=== PATIENT | female | born 1995 | race Caucasian/White ===

== ENCOUNTER 2018-01-12 18:57 | Emergency (ER) | payer OTHER ==
[2018-01-12 22:04] LABS: ABS Basophils 0 10^3/ul (0-0.2); ABS Eosinophils 0.2 10^3/ul (0-0.6); ABS Lymphocytes 3.3 10^3/ul (1.0-4.8); ABS Monocytes 0.5 10^3/ul (0-0.8); ABS Neutrophils 4.3 10^3/ul (1.5-7.7); ABS Nucleated RBC 0 10^3/ul; Eosinophil % 2.1 % (0-6); Hematocrit 43 % (35-47); Hemoglobin 14.9 g/dl (12.0-16.0); Lymphocyte % 39.4 % (25-47); Mean Corpuscular HGB Conc 35 g/dl (31-36); Mean Corpuscular Hemoglobin 31 pg (27-31); Mean Corpuscular Volume 89 fL (80-97); Mean Platelet Volume 9 um3 (7.4-10.4); Nucleated Red Blood Cells % 0; Platelet Count 183 10^3/ul (150-450); Red Cell Distribution Width 14 % (10.5-15); White Blood Count 8.3 10^3/ul (3.5-10.8)
[2018-01-12 22:22] LABS: EGFR Non-African American 110.1 (>60)
[2018-01-13] MEDS ORDERED: NS 0.9% 1000 ML* 1,000 ML IV ONE (00:55)
[2018-01-13 01:17] LABS: Urine Appearance Cloudy; Urine Blood 1+ (Negative); Urine Color Yellow; Urine Ketones Negative (Negative); Urine Protein Negative (Negative); Urine Urobilinogen Negative (Negative)
--- NOTE | 2018-01-13 01:50 | ED ---
Abdominal Pain/Female - HPI Summary HPI Summary: Patient here with right lower quadrant abdominal pain 5 days. Started as intermittent sharp pain fairly spaced out however over the past few days is been getting more frequent. Associated symptoms are nausea when pain is at its worst. She admits to a history of right ovarian cyst however reports this typically meets a crescendo of pain but she assumes is the cyst rupturing and the pain goes away after day or 2. This is the longest this type of pain is lasted and seems to be worse than usual. She was taking oral control up until the past month and she recently switched over to an IUD. She admits her practitioner attempted to place a ParaGard twice as the first one came out and the second one came out as well. A third IUD was placed in the same day, this time her Mirena which is currently present. She's had discomfort since and had a week of bleeding after. She reports she was seen at [facility] since symptoms started and had an ultrasound to make sure the IUD did not perforate her uterine wall which it had not. Unfortunately they could not comment on her ovary status at that point in time. She also reports flank pain on the left side at one point but does not have this currently. Additionally, she has had some dysuria but denies frequency, urge, hematuria and no vaginal discharge other than that mentioned above with spotting. She is not had any abdominal surgeries in the past. Bowel movements have been normal. Denies vomiting, diarrhea, [place], chills, headache, chest pain, shortness of breath, skin changes and no trauma to the vaginal canal other than recent IUD placement. She does admit to dyspareunia at times which is mostly positional and denies postcoital bleeding. She has not had a Pap smear is a strong family history of breast cancer. Denies known history of ovarian uterine or cervical cancer. - History of Current Complaint Hx Obtained From: Patient, Family/[employer] - male partner Pain Intensity: 0 <Nohemi Diaz - Last Filed: 01/13/18 03:13> <Fermín Guzman - Last Filed: 01/13/18 15:51> - History of Current Complaint Chief Complaint: EDTimmyPain Stated Complaint: ABD PAIN Time Seen by Provider: 01/13/18 00:12 Allergies/Adverse Reactions: Allergies Allergy/AdvReac Type Severity Reaction Status Date / Time No Known Allergies Allergy Verified 01/12/18 18:59 PMH/Surg Hx/FS Hx/Imm Hx Previously Healthy: Yes Endocrine/Hematology History: Denies: Hx Anticoagulant Therapy, Hx Blood Disorders, Autoimmune Disease GI History: Denies: Hx Crohn's Disease, Hx Diverticulosis, Hx Gall Bladder Disease, Hx Gastroesophageal Reflux Disease, Hx Gastrointestinal Bleed, Hx Hiatal Hernia, Hx Irritable Bowel, Hx Obstructive Bowel, Hx Ulcer History: Reports: Hx Renal Disease - "kidney issues" in the past; h/o UTI, ovarian cysts Infectious Disease History: No Infectious Disease History: Denies: Traveled Outside the [place] in Last 30 Days - Family History Known Family History: Positive: Renal Disease - Maternal aunt, Blood Disorder - DVT father, Other - breast cancer - aunt, gram (mom w/ lumps) - Social History Occupation: Student - PT student Lives: Dormitory/Roommates Alcohol Use: Occasionally Hx Substance Use: No Substance Use Type: Reports: None Hx Tobacco Use: No Smoking Status (MU): Never Smoked Tobacco <Nohemi Diaz - Last Filed: 01/13/18 03:13> Review of Systems Constitutional: Negative Negative: Fever, Chills, Fatigue Cardiovascular: Negative Respiratory: Negative Positive: Abdominal Pain, Nausea. Negative: Vomiting, Diarrhea Positive: see HPI Musculoskeletal: Negative Skin: Negative Neurological: Negative Psychological: Normal - concerned but calm and cooperative All Other Systems Reviewed And Are Negative: Yes <Nohemi Diaz - Last Filed: 01/13/18 03:13> Physical Exam Triage Information Reviewed: Yes Vital Signs On Initial Exam: Initial Vitals Temp Pulse Resp BP Pulse Ox 96.8 F 75 14 122/81 98 01/12/18 18:59 01/12/18 18:59 01/12/18 18:59 01/12/18 18:59 01/12/18 18:59 Vital Signs Reviewed: Yes Appearance: Positive: Well-Appearing, Well-Nourished, Pain Distress - mild Skin: Positive: Warm, Skin Color Reflects Adequate Perfusion, Dry Head/Face: Positive: Normal Head/Face Inspection Eyes: Positive: Normal, EOMI, Conjunctiva Clear - anicteric sclera ENT: Positive: Normal ENT inspection, Hearing grossly normal, Pharynx normal - mucosa moist Neck: Positive: Supple Respiratory/Lung Sounds: Positive: Clear to Auscultation, Breath Sounds Present Cardiovascular: Positive: Normal, RRR, S1, S2 Abdomen Description: Positive: No Organomegaly, Soft, Other: - RLQ TTP (mild) - no rebounding; (-) Rovsing. Negative: CVA Tenderness (R), CVA Tenderness (L), Distended, Guarding Bowel Sounds: Positive: Present Pelvic Exam: Positive: external exam normal, cervicitis, discharge - yellow, mucous d/c - blood tinged on specimen collection, tender w/ cervical motion, tender adnexa - Rt - no masses palpated. Negative: active bleeding Musculoskeletal: Positive: Normal, Strength/ROM Intact Neurological: Positive: Normal, Sensory/Motor Intact, Alert, Oriented to Person Place, Time, CN Intact II-III Psychiatric: Positive: Normal <Nohemi Diaz - Last Filed: 01/13/18 03:13> Vital Signs On Initial Exam: Initial Vitals Temp Pulse Resp BP Pulse Ox 36.0 C 75 14 122/81 98 01/12/18 18:59 01/12/18 18:59 01/12/18 18:59 01/12/18 18:59 01/12/18 18:59 <Fermín Guzman - Last Filed: 01/13/18 15:51> Diagnostics - Vital Signs Vital Signs Temp Pulse Resp BP Pulse Ox 01/12/18 22:56 98.3 F 72 122/73 100 01/12/18 21:06 97.5 F 74 16 121/82 100 01/12/18 18:59 96.8 F 75 14 122/81 98 - Laboratory Lab Results: Lab Results 01/12/18 01/12/18 01/13/18 Range/Units 21:47 21:47 00:30 WBC 8.3 (3.5-10.8) 10^3/ul RBC 4.80 (4.0-5.4) 10^6/ul Hgb 14.9 (12.0-16.0) g/dl Hct 43 (35-47) % MCV 89 (80-97) fL MCH 31 (27-31) pg MCHC 35 (31-36) g/dl RDW 14 (10.5-15) % Plt Count 183 (150-450) 10^3/ul MPV 9 (7.4-10.4) um3 Neut % (Auto) 51.9 (38-83) % Lymph % (Auto) 39.4 (25-47) % Freestone % (Auto) 6.1 (0-7) % Eos % (Auto) 2.1 (0-6) % Baso % (Auto) 0.5 (0-2) % Absolute Neuts (auto) 4.3 (1.5-7.7) 10^3/ul Absolute Lymphs (auto) 3.3 (1.0-4.8) 10^3/ul Absolute Monos (auto) 0.5 (0-0.8) 10^3/ul Absolute Eos (auto) 0.2 (0-0.6) 10^3/ul Absolute Basos (auto) 0 (0-0.2) 10^3/ul Absolute Nucleated RBC 0 10^3/ul Nucleated RBC % 0 Sodium 140 (133-145) mmol/L Potassium 3.8 (3.5-5.0) mmol/L Chloride 106 (101-111) mmol/L Carbon Dioxide 27 (22-32) mmol/L Anion Gap 7 (2-11) mmol/L BUN 13 (6-24) mg/dL Creatinine 0.67 (0.51-0.95) mg/dL Est GFR ( Amer) 141.5 (>60) Est GFR (Non-Af Amer) 110.1 (>60) BUN/Creatinine Ratio 19.4 (8-20) Glucose 76 (70-100) mg/dL Calcium 9.4 (8.6-10.3) mg/dL Total Bilirubin 0.40 (0.2-1.0) mg/dL AST 26 (13-39) U/L ALT 39 (7-52) U/L Alkaline Phosphatase 45 (34-104) U/L C-Reactive Protein < 1.00 (< 5.00) mg/L Total Protein 7.1 (6.4-8.9) g/dL Albumin 4.5 (3.2-5.2) g/dL Globulin 2.6 (2-4) g/dL Albumin/Globulin Ratio 1.7 (1-3) Lipase 25 (11.0-82.0) U/L Beta HCG, Quant < 0.60 mIU/mL Urine Color Yellow Urine Appearance Cloudy Urine pH 7.0 (5-9) Ur Specific Taft 1.020 (1.010-1.030) Urine Protein Negative (Negative) Urine Ketones Negative (Negative) Urine Blood 1+ A (Negative) Urine Nitrate Negative (Negative) Urine Bilirubin Negative (Negative) Urine Urobilinogen Negative (Negative) Ur Leukocyte Esterase 2+ A (Negative) Urine WBC (Auto) 3+(>20/hpf) A (Absent) Urine RBC (Auto) Trace(0-2/hpf) (Absent) Ur Squamous Epith Cells Present A (Absent) Urine Bacteria Absent (Absent) Urine Glucose Negative (Negative) Result Diagrams: 01/12/18 21:47 01/12/18 21:47 Lab Statement: Any lab studies that have been ordered have been reviewed, and results considered in the medical decision making process. <Nohemi Diaz - Last Filed: 01/13/18 03:13> - Vital Signs Vital Signs Temp Pulse Resp BP Pulse Ox 01/13/18 02:09 36.4 C 01/12/18 22:56 36.8 C 72 122/73 100 01/12/18 21:06 36.4 C 74 16 121/82 100 01/12/18 18:59 36.0 C 75 14 122/81 98 - Laboratory Lab Results: Lab Results 01/12/18 01/12/18 01/13/18 Range/Units 21:47 21:47 00:30 WBC 8.3 (3.5-10.8) 10^3/ul RBC 4.80 (4.0-5.4) 10^6/ul Hgb 14.9 (12.0-16.0) g/dl Hct 43 (35-47) % MCV 89 (80-97) fL MCH 31 (27-31) pg MCHC 35 (31-36) g/dl RDW 14 (10.5-15) % Plt Count 183 (150-450) 10^3/ul MPV 9 (7.4-10.4) um3 Neut % (Auto) 51.9 (38-83) % Lymph % (Auto) 39.4 (25-47) % Freestone % (Auto) 6.1 (0-7) % Eos % (Auto) 2.1 (0-6) % Baso % (Auto) 0.5 (0-2) % Absolute Neuts (auto) 4.3 (1.5-7.7) 10^3/ul Absolute Lymphs (auto) 3.3 (1.0-4.8) 10^3/ul Absolute Monos (auto) 0.5 (0-0.8) 10^3/ul Absolute Eos (auto) 0.2 (0-0.6) 10^3/ul Absolute Basos (auto) 0 (0-0.2) 10^3/ul Absolute Nucleated RBC 0 10^3/ul Nucleated RBC % 0 Sodium 140 (133-145) mmol/L Potassium 3.8 (3.5-5.0) mmol/L Chloride 106 (101-111) mmol/L Carbon Dioxide 27 (22-32) mmol/L Anion Gap 7 (2-11) mmol/L BUN 13 (6-24) mg/dL Creatinine 0.67 (0.51-0.95) mg/dL Est GFR ( Amer) 141.5 (>60) Est GFR (Non-Af Amer) 110.1 (>60) BUN/Creatinine Ratio 19.4 (8-20) Glucose 76 (70-100) mg/dL Calcium 9.4 (8.6-10.3) mg/dL Total Bilirubin 0.40 (0.2-1.0) mg/dL AST 26 (13-39) U/L ALT 39 (7-52) U/L Alkaline Phosphatase 45 (34-104) U/L C-Reactive Protein < 1.00 (< 5.00) mg/L Total Protein 7.1 (6.4-8.9) g/dL Albumin 4.5 (3.2-5.2) g/dL Globulin 2.6 (2-4) g/dL Albumin/Globulin Ratio 1.7 (1-3) Lipase 25 (11.0-82.0) U/L Beta HCG, Quant < 0.60 mIU/mL Urine Color Yellow Urine Appearance Cloudy Urine pH 7.0 (5-9) Ur Specific [place] 1.020 (1.010-1.030) Urine Protein Negative (Negative) Urine Ketones Negative (Negative) Urine Blood 1+ A (Negative) Urine Nitrate Negative (Negative) Urine Bilirubin Negative (Negative) Urine Urobilinogen Negative (Negative) Ur Leukocyte Esterase 2+ A (Negative) Urine WBC (Auto) 3+(>20/hpf) A (Absent) Urine RBC (Auto) Trace(0-2/hpf) (Absent) Ur Squamous Epith Cells Present A (Absent) Urine Bacteria Absent (Absent) Urine Glucose Negative (Negative) Result Diagrams: 01/12/18 21:47 01/12/18 21:47 Lab Statement: Any lab studies that have been ordered have been reviewed, and results considered in the medical decision making process. <Fermín Guzman - Last Filed: 01/13/18 15:51> Re-Evaluation - Re-Evaluation First Eval Re-Evaluation Time: 03:57 Change: Improved - pt symptomatically improved with IV and oral analgesia. pt pain consistent with ovarian cyst. Pt repeat exam with mild right sided pelvic tenderness. No McBurney's point tenderness; no g/r; soft <Fermín Guzman - Last Filed: 01/13/18 15:51> Abdominal Pain Fem Course/Dx - Course Course Of Treatment: Patient here with right lower quadrant pain 5 days progressively worsening. She reports history of right ovarian cyst on this side which feels similar however pain seems to be getting worse instead of getting better as he usually does after a day or 2. She admits to associated symptoms of nausea when pain is at its peak. Denies fevers chills vomiting diarrhea urinary symptoms. She also admits to recent placement of IUD which was complicated as 3 were placed in one day. She had an [facility] at [facility] since right lower quadrant pain started and they reported IUD was in place without perforation. Unfortunately cannot comment on the status of her ovaries. Her labs are all within normal limits here today as are her vital signs. Her pelvic exam is positive for cervical motion tenderness which could be from IUD irritation and/or infection as she does have a mucousy blood-tinged discharge. She also has right adnexal tenderness. Transvaginal ultrasound was ordered to rule out ovarian torsionresults pending. Diff dx: Appendicitis, urinary tract stone, PID, pain from IUD. May benefit from CT if no findings on U /S. Signed out to Dr. Guzman. <Nohemi Diaz - Last Filed: 01/13/18 03:13> <Fermín Guzman - Last Filed: 01/13/18 15:51> - Diagnoses Provider Diagnoses: Ovarian cyst Discharge - Discharge Plan Discharge Disposition Comment: signed out <Nohemi Diaz - Last Filed: 01/13/18 03:13> <Fermín Guzman - Last Filed: 01/13/18 15:51> - Discharge Plan Condition: Stable Disposition: HOME Prescriptions: Ibuprofen TAB* [Motrin TAB* 800 MG] 800 mg PO Q6H PRN 3 Days #20 tab PRN Reason: Pain traMADol TAB* [Ultram*] 50 mg PO Q6HR PRN 3 Days #12 tab MDD 200mg PRN Reason: Pain Patient Education Materials: Ovarian Cyst (ED) Referrals: Non Staff,Doctor [Primary Care Provider] - 2 Days Additional Instructions: Please follow up with your [facility] in 2-3 days for repeat evaluation and treatment.
[2018-01-13] MEDS ORDERED: Azithromycin TAB* 250 MG PO ONE (03:47)
[2018-01-13] MEDS ORDERED: cefTRIAXone VIAL(*) 250 MG VIAL IM ONE (03:47)
[2018-01-13] MEDS ORDERED: Ketorolac INJ* 30 MG/ML 1 ML VIAL IV PUSH ONE (03:56)
[2018-01-13] MEDS ORDERED: Lidocaine 1%* 5 ML VIAL ONE (04:20)
[2018-01-13 05:15] VITALS: BP 126/69
--- NOTE | 2018-01-13 09:32 | RAD ---
INDICATION: Right lower quadrant pain COMPARISON: None. TECHNIQUE: Real-time transabdominal only ultrasound examination of the female pelvis including grayscale and Doppler color flow imaging. FINDINGS: Uterus: The uterus is normal in size and echogenicity measuring 7.7 x 3.7 x 5.5. The endometrial stripe is smooth and uniform measuring 8 mm in thickness. The intrauterine device is appropriately positioned according to sonographic criteria. Ovaries: The right and left ovary measure 4.9 x 5.6 x 5.1 cm and 2.9 x 1.7 x 2.3 cm, respectively. Normal arterial and venous waveforms are identified. Within the right ovary there is an anechoic and avascular structure measuring 4.9 cm in greatest dimension most consistent with a dominant follicle in a woman of this age. There is no free fluid in the cul-de-sac. IMPRESSION: 1. The anechoic and avascular structure in the right ovary measuring 4.9 cm in greatest dimension is most consistent with a dominant follicle in a woman of this age. If the patient's symptoms persist this finding can be followed up with pelvic ultrasound and approximately 6 weeks to ascertain resolution. 2. The intrauterine device is appropriately positioned according to sonographic criteria.
== END 2018-01-13 05:13 | disposition home or self-care (01) ==
LOC: ED 18:57
DX: N83.201 Unspecified ovarian cyst, right side (principal); Z97.5 Presence of (intrauterine) contraceptive device
CPT/HCPCS: 36415; 76856; 80053; 81003; 81015; 83690; 84702; 85025; 86140; 87086; 87480; 87491; 87510; 87591; 87661; 96360; 96372; 96374; 99284; A9270-GY; J0696; J1885

== ENCOUNTER 2019-09-17 08:40 | Emergency (ER) | payer SELFPAY ==
[2019-09-17] MEDS ORDERED: Ibuprofen TAB* 600 MG PO ONE (08:53)
[2019-09-17] MEDS ORDERED: Lorazepam PYXIS KEY PRN (08:53)
[2019-09-17] MEDS ORDERED: LORazepam INJ* 2 MG/ML 1 ML VIAL IV PUSH ONE (08:53)
--- NOTE | 2019-09-17 08:55 | ED ---
Back Pain - HPI Summary HPI Summary: This patient is a 24 year old F BIBA via EMS to ED with a chief complaint of low middle back pain slightly worse to the left since 0715 this morning. Patient was in the shower and bent down to get shower gel. She heard a really loud pop in her back, felt a sharp pain, and then fell down as her back gave out. Patient denies head injury. She yelled for her partner to come and help as she could not move. She could not get to the sitting position. She felt nauseous and lightheaded and then lost consciousness. Patient broke her pelvis when she was 11 and has had chronic back pain since, but this is much worse. The patient rates the pain 10/10 in severity. Symptoms aggravated by nothing. Symptoms alleviated by nothing. Patient denies bowel incontinence, urinary incontinence, numbness, tingling, fever, shooting pains down her legs. Patient denies DM, IVDA. She reports having seizures in high school, but hasnt had them in a long time. Medications reviewed. Allergies noted. - History of Current Complaint Stated Complaint: BACK PAIN FROM FALL PER EMS Time Seen by Provider: 09/17/19 08:43 Hx Obtained From: Patient Onset/Duration: Sudden Onset, Lasting Hours - Since 07, Still Present Onset/Duration: Started Hours Ago - At 0715, Still Present Timing: Constant, Lasting Hours Back Pain Location: Is Discrete @ - Low middle back, slightly worse on left Severity Initially: Severe Severity Currently: Severe Pain Intensity: 10 Pain Scale Used: 0-10 Numeric Character: Sharp Aggravating Symptom(s): Nothing Alleviating Symptom(s): Nothing Associated Signs And Symptoms: Negative: Fever, Numbness, Tingling, Bladder Incontinence, Bowel Incontinence - Allergies/Home Medications Allergies/Adverse Reactions: Allergies Allergy/AdvReac Type Severity Reaction Status Date / Time tramadol Allergy Hallucinati Verified 09/17/19 09:04 ons PMH/Surg Hx/FS Hx/Imm Hx Endocrine/Hematology History: Denies: Hx Anticoagulant Therapy, Hx Blood Disorders GI History: Denies: Hx Crohn's Disease, Hx Diverticulosis, Hx Gall Bladder Disease, Hx Gastroesophageal Reflux Disease, Hx Gastrointestinal Bleed, Hx Hiatal Hernia, Hx Irritable Bowel, Hx Obstructive Bowel, Hx Ulcer History: Reports: Hx Renal Disease - "kidney issues" in the past; h/o UTI, ovarian cysts Neurological History: Reports: Hx Seizures - Surgical History Surgery Procedure, Year, and Place: Denies - Family History Known Family History: Positive: Renal Disease - Maternal aunt, Blood Disorder - DVT father, Other - breast cancer - aunt, gram (mom w/ lumps) - Social History Alcohol Use: Occasionally Hx Substance Use: No Substance Use Type: Reports: None Hx Tobacco Use: No Smoking Status (MU): Never Smoked Tobacco Review of Systems Negative: Fever Positive: Nausea Negative: incontinence Musculoskeletal: Negative - Shooting pain down the legs Neurological: Negative - Head injury, Other - Lightheadedness All Other Systems Reviewed And Are Negative: Yes Physical Exam - Summary Physical Exam Summary: Constitutional: Well-developed, Well-nourished, Alert. (-) Distressed Skin: Warm, Dry HENT: Normocephalic; Atraumatic Eyes: Conjunctiva normal Neck: Musculoskeletal ROM normal neck. (-) JVD, (-) Stridor, (-) Tracheal deviation Cardio: Rhythm regular, rate normal, Heart sounds normal; Intact distal pulses; Radial pulses are 2+ and symmetric. (-) Murmur Pulmonary/Chest wall: Effort normal. (-) Respiratory distress, (-) Wheezes, (-) Rales Abd: Soft, (-) tenderness, (-) Distension, (-) Guarding, (-) Rebound Musculoskeletal: Limited range of motion at the hip and flexion extension. Patient able to roll on her side. She does have equal strength in lower extremities. Negative straight leg raise bilaterally. Lymph: (-) Cervical adenopathy Neuro: Alert, Oriented x3 Psych: Mood and affect Normal Triage Information Reviewed: Yes Vital Signs On Initial Exam: Initial Vitals Temp Pulse Resp BP Pulse Ox 99.1 F 77 14 121/76 96 09/17/19 08:45 09/17/19 08:45 09/17/19 08:45 09/17/19 08:45 09/17/19 08:45 Vital Signs Reviewed: Yes Procedures - Sedation Patient Received Moderate/Deep Sedation with Procedure: No Re-Evaluation - Re-Evaluation First Eval Re-Evaluation Time: 09:52 Change: Improved Comment: Patient reports feeling slightly better but the pain is still there. She is attempting but unable to sit up on the bed. I will give IV morphine. Second Eval Re-Evaluation Time: 10:39 Change: Improved Comment: Patient ambulated to the bathroom. Discussed results with patient. Patient will be discharged home with dx of lower back pain. Patient understands and agrees with this plan. Back Pain Course/Dx - Course Course Of Treatment: Patient is here with lower back pain that occurred while she was bending in the shower. Patient has no reflex symptoms of lower back pain and does not need an emergent MRI. Patient was given Ativan, morphine, Motrin here in her symptoms. Patient is ableto ambulate here. Patient is discharged with Flexeril and lidocaine patches. - Diagnoses Provider Diagnoses: Lower back pain Discharge ED - Sign-Out/Discharge Documenting (check all that apply): Patient Departure - Discharge - Discharge Plan Condition: Stable Disposition: HOME Prescriptions: Cyclobenzaprine TAB* [Flexeril 10 MG TAB*] 10 mg PO TID PRN #12 tab PRN Reason: muscle spasm Lidocaine PATCH 5%* [Lidoderm 5% Patch*] 1 patch TRANSDERM DAILY 5 Days #5 patch Patient Education Materials: Back Pain (ED) Forms: *Work Release Referrals: [facility] [Outside] - 3 Days Additional Instructions: Follow-up with your primary care physician in 1-3 days. Take Ibuprofen 600mg every hours for pain. Take prescribed muscle relaxant if needed. Go to the grocery store and buy the items we talked about in the back pain section. Return to work on Monday. - Billing Disposition and Condition Condition: STABLE Disposition: Home - Attestation Statements Document Initiated by Stefanye: Yes Documenting Scribe: Cosme Ramos Provider For Whom Tony is Documenting (Include Credential): Zuhair Ortega MD Scribe Attestation: Cosme Hdz, scribed for Zuhair Ortega MD on 09/17/19 at 1618. Scribe Documentation Reviewed: Yes Provider Attestation: The documentation as recorded by the Cosme piper accurately reflects the service I personally performed and the decisions made by me, Zuhair Ortega MD Status of Scribe Document: Viewed
[2019-09-17] MEDS ORDERED: Lorazepam PYXIS KEY ONE (09:06)
[2019-09-17] MEDS ORDERED: Morphine 4 MG/ML VIAL (1 ml) 4 MG/ML VIAL IV ONE (09:52)
[2019-09-17 12:03] VITALS: BP 113/85
== END 2019-09-17 11:08 | disposition home or self-care (01) ==
LOC: ED 08:40
DX: M54.5 Low back pain (principal); Z88.5 Allergy status to narcotic agent
CPT/HCPCS: 96374; 96375; 99283; A9270-GY; J2060; J2270